=== PATIENT | female | born 1975 | race African-American/Black ===

== ENCOUNTER 2017-04-21 02:55 | Inpatient (IN) | payer OTHER ==
[~2017-04-21] VITALS: Ht 152.4 cm; Wt 58.1 kg
[~2017-04-21 02:55] MED LIST: DICLOFENAC SODI50 M3 PO; MOBIC15 MG PO; MULTI FOR HER1 EAC2 PO; MULTIVITAMINS1 EAC9 PO; PENICILLIN V P500 MG PO
--- NOTE | 2017-04-21 08:45 | Operative Report ---
Operative/Inv Procedure Report Surgery Date: 04/21/17 Name of Procedure: cystoscopy: bilateral stent insertion. Pre-Operative Diagnosis: fibroid Post-Operative Diagnosis: same Estimated Blood Loss: scant Surgeon/Director Student Union: MD Alfred, Oswaldo-urology. Anesthesia: general endotracheal tube Drains: 18fr sharma. Specimens: ucx Complications: none Operative/Procedure Note Note: The patient was taken to the operating room and placed on the OR table in supine position. Timeout was performed, with the patient awake, to confirm correct identify, planned procedures, anesthesia, antibiotics, and other pertinent melissa -operative information. After adequate anesthesia, and IV antibiotics, the patient was placed in lithotomy Yellow-fin stirrups. She was then draped and prepped in the usual surgical fashion, including a vaginal prep. A 22 Faroese cystoscope sheath with a 30 angle lens was inserted into the bladder without significant difficulty. The bladder was thoroughly and systematically examined, and was noted to be free of tumor, free of stone, free of endometriosis. Both ureteral orifices were in their orthotopic positions with clear reflux bilaterally. Under direct visualization the left orifice was intubated with a 5 Faroese whistle-tip catheter, which was advanced easily into the left kidney pelvis. The right ureteral orifice was intubated with a second 5 Faroese ureteral whistle tip catheter, and advanced into the right renal pelvis without difficulty. For identification purposes the blue marked stent went into the left kidney, and the right ureteral stent was marked red. Urine culture was obtained and sent to pathology. The cystoscope was then removed leaving both stents in proper place. An 18 Faroese Sharma catheter was inserted draining clear fluid and 10 mL of sterile water was then placed in the balloon. The ends of the ureteral stents, which protruded externally, were taped to the Sharma catheter in order to secure their position. The individual ureteral stents were then connected to their individual drainage devices. The patient tolerated the procedure well. All sponge needle and instrument count were correct at the end of this procedure. The patient was then repositioned in supine position, and Venodynes were placed on the lower extremeties bilaterally. At this point, Dr. aLo was able to proceed with the patient's surgery. Discharge Disposition: proceed with dr. lao Additional Comments: dr lao will remove both stents at the end of her surgery CC: Oswaldo Simon MD
--- NOTE | 2017-04-21 15:38 | Cons- Medical ---
Tu Ortega 04/21/17 1534: General Information and HPI Consulting Request Date of Consult: 04/21/17 Requested By: Daphney Danielle MD Reason for Consult: Blood pressure management Source of Information: patient Exam Limitations: no limitations History of Present Illness: This is a 41-year-old healthy -Hungarian lady, no past medical history, not on any home medications was [facility] after an elective hysterectomy for her fibroids. Medical team was consulted for management of new onset hypertension. Patient has no significant past medical history. She delivered baby girl when she was 24-year-old through normal vaginal delivery. She states that her blood pressure was high during the delivery, however normalized immediately after delivery. Never took any antihypertensives. She was never diagnosed with any hypertension, diabetes. Patient was found to have fibroids for last 10 years. However the size of fibroids has been increasing. She is symptomatic with anemia. She reports increased bleeding during her periods, no period irregularities. Also reports increased abdomen pain during her period. Because of increased size, pain and increased bleeding her marine fisheries technician Dr. Danielle opted for elective hysterectomy. she Was found to have Large lobulated partially calcified pelvic mass extending into the mid and lower abdomen that measures 19 x 11 x 11 cm on CAT scan abdomen and pelvis. This probably represents an enlarged fibroid uterus. She underwent an elective hysterectomy on 04/21/2017. However she was found to have elevated blood pressures throughout the procedure. Ranging between 148/104 -160/110. However immediately after surgery her blood pressure normalized 128/ 84. Patient received Vasotec and hydralazine throughout the procedure for management of blood pressure. On review of systems she denies any chest pain, short of breath, palpitations, productive cough, fever, chills, nausea, vomiting, abdominal pain, change in bladder or bowel habits, headache, focal neurologic deficits, weakness or sensory changes, gait or vision abnormalities. She never smoked, denies alcohol abuse, illicit drug abuse. Allergies/Medications Allergies: Coded Allergies: NO KNOWN ALLERGIES (01/01/12) Current Medications: Current Medications Sig/Alexey Start time Last Medication Dose Route Stop Time Status Admin Cefoxitin Sodium 2,000 MG ONCE 04/21 0000 NR IV 04/21 2359 Dextrose/Lactated 1,000 ML Q8H 04/21 1015 AC Ringer's IV Diphenhydramine HCl 25 MG Q6P PRN 04/21 1015 AC INJ Docusate Sodium 100 MG BID 04/21 2200 AC PO Enoxaparin Sodium 40 MG DAILY 04/22 1000 AC SC Fentanyl Citrate 200 MCG .STK-MED ONE 04/21 0653 DC IM 04/21 0654 Hydromorphone HCl 50 MG Q24H PRN 04/21 1030 AC Sodium Chloride 45 ML IV Hydromorphone HCl 50 MG .[ PER FORM] 04/21 1015 CAN IV Ibuprofen 800 MG Q6P PRN 04/22 1015 AC PO Ketorolac 30 MG Q6P PRN 04/21 1015 AC Tromethamine INJ Magnesium Hydroxide 30 ML AT BEDTIME NEED.. 04/22 1015 AC PO Midazolam HCl 4 MG .STK-MED ONE 04/21 0653 DC IM 04/21 0654 Ondansetron HCl 4 MG Q6P PRN 04/21 1015 AC IV Oxycodone/ 1 TAB Q4P PRN 04/22 1015 AC Acetaminophen PO Simethicone 80 MG Q4P PRN 04/21 1015 AC PO Review of Systems Review of Systems Constitutional: Denies: chills, diaphoresis, fever, malaise, weakness, unexplained weight loss. EENTM: Denies: blurred vision, double vision, visual changes. Cardiovascular: Denies: chest pain, edema, orthopena. Respiratory: Denies: cough, hemoptysis, orthopnea, short of breath, sputum production, stridor, wheezing. GI: Denies: abdominal pain, bloating, constipation, melena, nausea, changes in stool , vomiting. Genitourinary: Denies: discharge, dysuria, frequency, hematuria. Musculoskeletal: Denies: back pain, gout, joint pain. Neurological/Psychological: Denies: anxiety, ataxia, depressed, dementia. Past History Medical History DIRECTOR MEETINGS/Reproductive: fibroid Surgical History Surgical History: non-contributory Psychosocial History Smoking Status: Unknown If Ever Smoked Exam & Diagnostic Data Last 24 Hrs of Vital Signs/I&O Laboratory Tests 04/21 0630 Urines Urine Test NEGATIVE Microbiology Date/Time Procedure - Status Source Growth 04/21 0820 Urine Culture - RES URINE OR Physical Exam General Appearance: well developed/nourished, no apparent distress, alert, awake Head: atraumatic, normal appearance Neck: normal inspection, supple Respiratory: normal breath sounds, chest non-tender Cardiovascular: regular rate/rhythm Gastrointestinal: normal bowel sounds, soft, non-tender Back: normal inspection Extremities: normal inspection, normal capillary refill Neurologic/Psych: no motor/sensory deficits, awake, alert, oriented x 3, normal mood/affect Cranial Nerves: normal hearing, normal speech, PERRL Last 24 Hrs of Labs/Lonny: Laboratory Tests 04/21/17 0630: Urine Test NEGATIVE Assessment/Plan Assessment/Plan This is a 41-year-old healthy -Hungarian lady, no past medical history, not on any home medications was admitted to [facility] after an elective hysterectomy for her fibroids. Medical team was consulted for management of new onset hypertension. Vitals afebrile, heart rate 88, blood pressure ranging between 128/84-134/88, respiratory rate 18, saturating at 99 on room air Fibroids status post hysterectomy Patient was found to have fibroids for last 10 years. However the size of fibroids has been increasing. She is symptomatic with anemia. She reports increased bleeding during her periods, no period irregularities. Also reports increased abdomen pain during her period. Because of increased size, pain and increased bleeding her marine fisheries technician Dr. Danielle opted for elective hysterectomy. she Was found to have Large lobulated partially calcified pelvic mass extending into the mid and lower abdomen that measures 19 x 11 x 11 cm on CAT scan abdomen and pelvis. This probably represents an enlarged fibroid uterus. * Status post hysterectomy day 0 * Continue antibiotics as per primary team * Continue fluids * Avoid constipation * Pain management per primary team * Bowel regimen * DVT prophylaxis per primary team Hypertension She underwent an elective hysterectomy on 04/21/2017. However she was found to have elevated blood pressures throughout the procedure. Ranging between 148/104 -160/110. However immediately after surgery her blood pressure normalized 128/ 84. Patient received Vasotec and hydralazine throughout the procedure for management of blood pressure. * Given her transient elevation of blood pressure during surgery, will hold off any medications for now. * High blood pressure during surgery most likely from stress, anesthesia. * Monitor off from blood pressure medication for now * In case if her blood pressure goes above 140/90 with determined starting amlodipine 2.5 mg daily and titrate accordingly * We recommend getting baseline BEP/EKG. * Urine analysis on 04/19/2017 was normal. * Please repeat CBCs given her hemoglobin 6.8 and hematocrit 20 Full code DVT prophylaxis and subcutaneous Lovenox, closely monitor for any bleeding Please follow attending recommendations below Consult Acknowledgment - Thank you for your consult request. Carrillo VELOZ,Sugar 04/22/17 1146: General Information and HPI Allergies/Medications Home Med List: Ferrous Gluconate 324 MG (38 MG IRON) TABLET 325 MG PO BID ANEMIA Hydromorphone HCl 2 MG TABLET 2 MG PO Q3P PRN PAIN SCALE 7-10 (SEVERE) Ibuprofen 800 MG TABLET 800 MG PO Q6P PRN PAIN Multiple Vitamin (Multivitamins) 1 EACH TABLET 1 TAB PO DAILY SUPP (Reported) Assessment/Plan Consult Acknowledgment - Thank you for your consult request. Attending MD Review Statement Attending Statement Attending MD Statement: examined this patient, discuss w/resident/PA/DIGITAL CARTOGRAPHIC TECHNICIAN, agreed w/resident/PA/DIGITAL CARTOGRAPHIC TECHNICIAN, reviewed EMR data (avail), discussed with nursing, discussed with case mgmt, amended to note Attending Assessment/Plan: Also see my addendum.
--- NOTE | 2017-04-21 15:55 | PN- Att Addend ---
Attending Addendum Attending Brief Note 41-year-old female with past history significant for -induced hypertension but was never on any medications afterwards, anemia who is status post hysterectomy today. Medical consult is obtained for hypertension readings during the procedure. Patient did receive hydralazine and Vasotec and blood pressure did come down. Most current blood pressure is 134/80. Patient denies any history of headaches, chest pain or shortness of breath. She does not have a primary care doctor and she does not take any other medications other than multivitamin. Patient had uterine fibroids with the menorrhagia [employer] hysterectomy was recommended and performed today. BP 134/80. On exam; aox3, nad. cv; s1,s2, rrr resp; clear abd; + abd binder on. ext; no edema. Laboratory Tests 04/21 0630 Urines Urine Test NEGATIVE A/P; 41-year-old female who is status post hysterectomy secondary to uterine fibroids, menorrhagia leading to anemia and medical consult is obtained for hypertension. Current blood pressure is stable. Would recommend monitoring of the blood pressure. If blood pressure starts to creep up which means above 140/90 then would recommend starting the patient on amlodipine 2.5 mg daily which can be uptitrated to better control her blood pressure. Pain management will be up to REROLLER HAND. Will recommend getting basic lab work including CBC, BEP. Postop care per REROLLER HAND. DVT prophylaxis: Will refer to REROLLER HAND.
[2017-04-21 17:05] LABS: MEAN CORPUSCULAR HGB 16.3 PG (27.0-31.0); MEAN CORPUSCULAR VOLUME 54.1 FL (81.0-99.0); PLATELET COUNT 326 /CUMM (130-400); RBC DISTRIBUTION WIDTH 22.6 % (11.5-14.5); RED BLOOD CELL CT 4.06 /CUMM (4.20-5.40)
[2017-04-21 17:06] LABS: WHITE BLOOD CELL COUNT 11.9 /CUMM (4.8-10.8)
[2017-04-22 07:18] LABS: HEMATOCRIT 23.2 % (37-47); MEAN CORPUSCULAR HGB CONC 31.7 G/DL (33.0-37.0); MEAN PLATELET VOLUME 7.9 FL (7.4-10.4); PLATELET COUNT 281 /CUMM (130-400); RBC DISTRIBUTION WIDTH 34.9 % (11.5-14.5); RED BLOOD CELL CT 3.86 /CUMM (4.20-5.40); WHITE BLOOD CELL COUNT 10.1 /CUMM (4.8-10.8)
[2017-04-22 07:24] LABS: MEAN CORPUSCULAR VOLUME 60.1 FL (81.0-99.0)
--- NOTE | 2017-04-22 07:37 | PN- Medicine Consult ---
Tu Ortega 04/22/17 0737: Assessment/PlanMedical Consult Assessment/Plan Assessment: This is a 41-year-old healthy -Ghanaian lady, no past medical history, not on any home medications was admitted to [facility] after an elective hysterectomy for her fibroids. Medical team was consulted for management of melissa operative hypertension. Vitals afebrile, heart rate 88, blood pressure ranging between 128/84-134/88, respiratory rate 18, saturating at 99 on room air Fibroids status post hysterectomy Patient was found to have fibroids for last 10 years. However the size of fibroids has been increasing. She is symptomatic with anemia. She reports increased bleeding during her periods, no period irregularities. Also reports increased abdomen pain during her period. Because of increased size, pain and increased bleeding her case briefer Dr. Danielle opted for elective hysterectomy. she Was found to have Large lobulated partially calcified pelvic mass extending into the mid and lower abdomen that measures 19 x 11 x 11 cm on CAT scan abdomen and pelvis representing an enlarged fibroid uterus. * Status post hysterectomy day1 * Continue fluids * Advance her diet * Avoid constipation * Pain management per primary team * Bowel regimen * DVT prophylaxis per primary team * Out of bed, physical therapy, ambulation Hypertension She underwent an elective hysterectomy on 04/21/2017. However she was found to have elevated blood pressures throughout the procedure. Ranging between 148/104 -160/110. However immediately after surgery her blood pressure normalized 128/ 84. Patient received Vasotec and hydralazine throughout the procedure for management of blood pressure. * Given her transient elevation of blood pressure during surgery, will hold off any medications for now. * High blood pressure during surgery most likely from stress, anesthesia. * Monitor off from blood pressure medication for now * In case if her blood pressure goes above 140/90, recommend starting amlodipine 2.5 mg daily and titrate accordingly * We recommend getting baseline BEP/EKG. * Urine analysis on 04/19/2017 was normal. Anemia she was found to have hemoglobin 6.6, hematocrit 22. Most likely from fibroids, postoperative bleeding. Patient was transfused 2 units. Posttransfusion CBCs 7.4, 23. * Closely monitor hemoglobin and hematocrit * Monitor for any signs of bleeding Full code DVT prophylaxis and subcutaneous Lovenox, closely monitor for any bleeding Please follow attending recommendations below Plan: . Subjective Subjective: Patient is seen and examined. She is alert awake and oriented to time place and person. No acute events overnight. She is postoperative day 1 status post hysterectomy. Tolerated procedure, advanced diet this morning. Reports minimal pain and soreness at the site of surgery. No problems with voiding. Vitals were stable. Blood pressure ranging between 135/80, 120/70. Review of Systems Constitutional: Denies: see HPI. Objective Last 24 Hrs of Vital Signs/I&O Vital Signs Date Time Temp Pulse Resp B/P B/P Pulse O2 O2 Flow FiO2 Mean Ox Delivery Rate 04/22 0020 100.2 04/21 1921 02/28 Physical Exam General Appearance: well developed/nourished, no apparent distress Other Physical Findings: General Appearance: well developed/nourished, no apparent distress, alert, awake Head: atraumatic, normal appearance Neck: normal inspection, supple Respiratory: normal breath sounds, chest non-tender Cardiovascular: regular rate/rhythm Gastrointestinal: normal bowel sounds, soft, non-tender incision clean dry and intact no bleeding from vagina Back: normal inspection Current Medications: Current Medications Sig/Alexey Start time Last Medication Dose Route Stop Time Status Admin Acetaminophen 1,000 MG .STK-MED ONE 04/22 0936 DC IV 04/22 0937 Acetaminophen 1,000 MG ONCE ONE 04/22 0030 DC 04/22 IV 04/22 0031 0020 Amlodipine Besylate 2.5 MG DAILY PRN 04/22 1000 AC PO Cefoxitin Sodium 2,000 MG ONCE 04/21 0000 DC IV 04/21 2359 Dextrose/Lactated 1,000 ML Q8H 04/21 1015 DC 04/22 Ringer's IV 0519 Diphenhydramine HCl 25 MG Q6P PRN 04/21 1015 AC INJ Docusate Sodium 100 MG BID 04/21 2200 AC 04/22 PO 0939 Enalaprilat 2.5 MG .STK-MED ONE 04/21 1226 DC IV 04/21 1227 Enalaprilat 2.5 MG .STK-MED ONE 04/21 1135 DC IV 04/21 1136 Enoxaparin Sodium 40 MG DAILY 04/22 1000 AC 04/22 SC 0940 Ferrous Gluconate 325 MG BID 04/22 1000 AC PO Hydralazine HCl 20 MG .STK-MED ONE 04/21 1328 DC IM 04/21 1329 Hydralazine HCl 20 MG .STK-MED ONE 04/21 1328 DC IM 04/21 1329 Hydralazine HCl 20 MG .STK-MED ONE 04/21 1257 DC IM 04/21 1258 Hydromorphone HCl 2 MG Q3P PRN 04/22 0930 AC PO Hydromorphone HCl 50 MG Q24H PRN 04/21 1030 DC Sodium Chloride 45 ML IV Hydromorphone HCl 2 MG .STK-MED ONE 04/21 1029 DC IM 04/21 1030 Hydromorphone HCl 2 MG .STK-MED ONE 04/21 1029 DC IM 04/21 1030 Hydromorphone HCl 50 MG .[ PER FORM] 04/21 1015 CAN IV Ibuprofen 800 MG Q6P PRN 04/22 1015 AC PO Ketorolac 30 MG Q6P PRN 04/21 1015 AC 04/22 Tromethamine INJ 0518 Magnesium Hydroxide 30 ML AT BEDTIME NEED.. 04/22 1015 AC PO Ondansetron HCl 4 MG Q6P PRN 04/21 1015 AC IV Oxycodone/ 1 TAB Q4P PRN 04/22 1015 CAN Acetaminophen PO Simethicone 80 MG Q4P PRN 04/21 1015 AC 04/22 PO 0939 Results Last 24 Hrs Lab/Lonny Results: Laboratory Tests 04/22/17 0640: CBC w Diff MAN DIFF ORDERED, RBC 3.86 L, MCV 60.1 L, MCH 19.0 L, MCHC 31.7 L , RDW 34.9 H, MPV 7.9, Segmented Neutrophils 81 H, Band Neutrophils 1, Lymphocytes 12 L, Monocytes 5, Eosinophils 1, Platelet Estimate VERIFIED BY SMEAR, Hypochromic-Microcytic 2+, Poikilocytosis 2+, Anisocytosis 2+, Microcytic Cells 2+, Target Cells 1+, Elliptocytes FEW 04/22/17 0009: Urine Color STRAW, Urine Clarity CLEAR, Urine pH 6.5, Ur Specific [place] <= 1.005, Urine Protein NEG, Urine Ketones NEG, Urine Nitrite NEG, Urine Bilirubin NEG, Urine Urobilinogen 0.2, Ur Leukocyte Esterase TRACE H, Ur Microscopic SEDIMENT EXAMINED, Urine RBC 10-15 H, Urine WBC 3-5 H, Ur Epithelial Cells RARE, Urine Mucus MOD H, Urine Hemoglobin LARGE H, Urine Glucose NEG 04/21/17 1630: CBC w Diff MAN DIFF ORDERED, RBC 4.06 L, MCV 54.1 L, MCH 16.3 L, MCHC 30.0 L , RDW 22.6 H, MPV 7.0 L, Segmented Neutrophils 88 H, Band Neutrophils 4, Lymphocytes 3 L, Monocytes 5, Platelet Estimate ADEQUATE, Polychromasia 1+, Hypochromic-Microcytic 3+, Anisocytosis 2+, Microcytic Cells 3+ Sugar Vizcaino MD 04/22/17 1209: Attending MD Review Statement Attending Sign Off Attending Cosign Statement: I have: examined this patient, reviewed avalbl EMR data, discussd w/resident/PA/ PHOTOENGRAVING FINISHER, discussed mgmt plan w/jhoan, discussed mgmt plan w/pt, agreed w/resident/PA/PHOTOENGRAVING FINISHER , amended to note. Other Findings: Patient seen and examined, overall doing pretty well. Denies any pain. Patient 's diet will be advanced per PULP MAKING PLANT OPERATOR. She received 2 units of RBCs and her H&H is improving. Blood pressure remained stable and she has not required any antihypertensive. We would recommend using amlodipine 2.5 mg by mouth daily when necessary only if blood pressure goes above 140/90. So far her blood pressure has been running in 120s range mostly. Patient denies any chest pain shortness of breath. We have put in an order for low-dose amlodipine to be used only on as-needed basis. If blood pressure remains stable over the next 24 hours then she would not require any consistent antihypertensive upon discharge. I recommend that she should establish her care with her primary care doctor after discharge. Blood pressure is stable therefore we will sign off. Please call with questions.
--- NOTE | 2017-04-22 09:11 | Operative Report ---
Operative/Inv Procedure Report Surgery Date: 04/21/17 Name of Procedure: Total abdominal hysterectomy removal of stents and left salpingectomy Pre-Operative Diagnosis: Fibroid Post-Operative Diagnosis: Same Estimated Blood Loss: 500 Surgeon/Lunchroom Aide: Shashi VELOZ,Daphney Gil and Dr. Camden Jennings the abdomen Anesthesia: general endotracheal tube, block Operative/Procedure Note Note: Procedure note patient was taken the operating room placed prone position after adequate induction general anesthesia via endotracheal tube patient placed in dorsolithotomy position the vagina from dorsal fashion and stents were placed by Dr. Melani Simon will dictate that part of the case this point the patient was returned spine position abdomen was prepped and draped so fashion 2 fingerbreadths above symptoms pubis to 1 finger breadths below the umbilicus and skin was cut in the midline vertical incision was carried down to rectus fascia which was secondary to the size of fibroid high into the abdomen peritoneum was entered on at this point the patient was placed in Trendelenburg I peritoneal washings were obtained the uterus was elevated onto the field on the round ligament was suture ligated on the right and round ligament was suture ligated on the left bladder flap was developed sharply as well as bluntly sequentially cervical branches uterine artery were clamped and cut on the right and left and oversewn using 0 patient tolerated this well on at this point the specimen was removed using a Bovie on the cervix was held in place to some bleeding sequentially cervical branches uterine artery clamped and cut to level of the external os and the cervix was removed the cuff was oversewn running locking sutures of 0 was indicated interrupted [id number] for hemostasis on at this point the left tube was picked up with [place] clamp 2 and oversewn clear oral pedicles were reexamined and resutured the endopelvic artery on the right had some bleeding on that was required 2 separate [id number] care was taken to avoid the stent at this point wrist was applied to the cervical cuff on since removed from the abdomen the counts correct the peritoneum was reapproximated 0 I the fascia was reapproximated using #1 Prolene patient tolerated that well running locking suture on care was taken to on place the knot of the suture with a 30 in the subcutaneous tissue skin was reapproximated clarence at the end the case the counts correct urine was clear stents removed bilaterally intact after the vagina had been irrigated patient was awakened from anesthesia and transferred recovery room awake and alert with counts correct
--- NOTE | 2017-04-22 09:16 | PN- Post Delivery/GYN ---
Subjective Subjective: surgery reviewed with pt pictures shown .pt is hungry Objective Last 24 Hrs of Vital Signs/I&O Vital Signs Date Time Temp Pulse Resp B/P B/P Pulse O2 O2 Flow FiO2 Mean Ox Delivery Rate 04/22 0020 100.2 04/21 Physical Exam: Petite black female HEENT anicteric Lungs clear Abdomen soft nondistended incision clean dry and intact On no bleeding from vagina Extremities negative edema negative Homans Assessment/Plan Assessment/Plan Assessment status post total abdominal hysterectomy for fibroids left salpingectomy status post 2 units packed red blood cells patient with severe anemia Plan I advanced diet advance ambulation and iron patient has regular bowel movements
[2017-04-22] MEDS ORDERED: HYDROMORPHONE HC2 M1 PO (09:21)
[2017-04-22] MEDS ORDERED: IBUPROFEN800 M1 PO (09:21)
[2017-04-22] MEDS ORDERED: FERROUS GLUCON324 M2 PO (09:21)
[2017-04-23 09:03] VITALS: BP 140/90
--- NOTE | 2017-04-23 11:12 | PN- General Surgery ---
Subjective Subjective: feels well Review of Systems: labile BPs Objective Vital Signs and I&Os Vital Signs Date Time Temp Pulse Resp B/P B/P Pulse O2 O2 Flow FiO2 Mean Ox Delivery Rate 04/23 09 140/90 04/22 2329 99.7 81 16 154/94 04/22 2023 98.6 04/22 2023 98.8 78 20 150/96 04/22 1936 99.3 Physical Exam: abd soft incision c/d/i ext nt Assessment/Plan Assessment/Plan s/p ANNA pod2 stable discharge home Problem List: 1. Uterine fibroid Core Measures Venous Thromboembolism VTE Risk Factors Surgery No Mechanical VTE Prophylaxis d/t N/A MechProphylax Ordered No VTE Pharm Prophylaxis d/t LowRisk-No Interven Req'd
== END 2017-04-23 12:25 | DRG 743 ==
LOC: SDA 02:55 → ENRESERV 10:55 → ENTRNSPT 13:48 → EDTRNSPTSTS 14:13 → EDTRNSPT 14:13 → CMPTRNSPT 14:27 → GNO 15:02
PROVIDERS: Specialist
PROC: 0T788DZ Dilation of Bilateral Ureters with Intraluminal Device, Via Natural or Artificial Opening Endoscopic (ICD-10-PCS; principal; 2017-04-21)
PROC: 0UT60ZZ Resection of Left Fallopian Tube, Open Approach (ICD-10-PCS; 2017-04-21)
PROC: 0UT90ZZ Resection of Uterus, Open Approach (ICD-10-PCS; 2017-04-21)
PROC: 30233N1 Transfusion of Nonautologous Red Blood Cells into Peripheral Vein, Percutaneous Approach (ICD-10-PCS; 2017-04-21)
DX: D25.9 Leiomyoma of uterus, unspecified (principal); D64.9 Anemia, unspecified; I10 Essential (primary) hypertension
CPT/HCPCS: GNOS; 36415; 81001; 81025; 86920; 87086; 88305; C9399; J0131; J0360; J0694; J1170; J1200; J1650; J1885; P9016